=== PATIENT | female | born 1975 | race Caucasian/White ===

== ENCOUNTER → 2018-03-26 14:25 | Outpatient (CLI) | payer OTHER, SELFPAY ==
--- NOTE | 2018-03-26 14:27 | BI_ITS ---
MAMMOGRAPHY - BILATERAL DIAGNOSTIC REASON FOR EXAM: Female, 42 years old. 3 month history of the lateral left breast tenderness. PERTINENT HISTORY: Non-contributory. TECHNIQUE: Digital bilateral breast char (3D mammographic acquisition) in the CC and MLO projections. 2-D mediolateral oblique (MLO) and craniocaudad (CC) views of both breasts were obtained. CAD: Full Field Digital Mammography with Computer Added Detection was performed. COMPARISON: Comparison is made with prior abdomen examination dated October 24, 2016. FINDINGS: Breast Composition: The breasts are extremely dense, which lowers the sensitivity of mammography. There are no dominant masses or suspicious calcifications. No other significant abnormalities are identified. There has been no significant change since the prior study. BI/DIAG MAMM W/CAD, BILAT IMPRESSION: Stable bilateral diagnostic mammogram. With the patient's history of left lateral breast pain, correlation with ultrasound is recommended. ASSESSMENT CATEGORY: BIRADS Category 0: Incomplete. Need additional imaging evaluation. A letter regarding these results will be sent to the patient by the facility within 30 days. Approximately 10% of breast cancers are not detected by mammography. A normal mammogram should not delay biopsy of a clinically suspicious abnormality. Electronically Signed: Jeovany Knox MD at 15:16 EDT Tel [phone], Service support ,
--- NOTE | 2018-03-26 15:10 | US_ITS ---
STUDY: ULTRASOUND BREAST - LEFT REASON FOR EXAM: Female, 42 years old. Pain in the left breast. TECHNIQUE: Axial and longitudinal images of the LEFT breast were performed with a high resolution ultrasound transducer. COMPARISON: Comparison is made with prior mammogram done earlier in the day. FINDINGS: LEFT Breast: There is a 6 mm x 5 mm x 3 mm cyst at the 1:00 position breast at 3 cm from the nipple. Incidental note is made of a 1.1 cm x 1.2 cm x 0.9 cm benign-appearing left axillary lymph node. US/Breast Limited Unilateral IMPRESSION: 6 mm x 5 mm x 3 mm cyst at the 1:00 position in the breast at 3 cm from the nipple. ASSESSMENT CATEGORY: BIRADS Category 2: Benign. A letter regarding these results will be sent to the patient by the facility within 30 days. Electronically Signed: Jeovany Knox MD at 15:51 EDT Tel [phone], Service support ,
== END ==
PROVIDERS: Visit Provider Obstetrics & Gynecology
DX: N64.4 Mastodynia (principal)
CPT/HCPCS: 76642; 77062; 77066; G0279

== ENCOUNTER → 2018-07-13 08:11 | Outpatient (CLI) | payer OTHER, SELFPAY ==
[2018-07-13 10:10] LABS: Cholesterol 155 mg/dL (200); Glucose 83 mg/dL (74-106); High Density Lipoprotein 64 mg/dL; Triglycerides 62 mg/dL; Very Low Density Lipoprotein 12 mg/dL (5-40)
[2018-07-15 09:48] LABS: Vitamin D,25 Hydroxy 42.4 ng/mL (29.95-100.01)
== END ==
PROVIDERS: Visit Provider Obstetrics & Gynecology
DX: Z13.1 Encounter for screening for diabetes mellitus (principal); Z12.31 Encounter for screening mammogram for malignant neoplasm of breast; Z13.21 Encounter for screening for nutritional disorder; Z12.4 Encounter for screening for malignant neoplasm of cervix
CPT/HCPCS: 36415; 80061; 82306; 82947

== ENCOUNTER → 2019-09-29 15:30 | Outpatient (CLI) | payer OTHER, SELFPAY ==
[2019-09-29 15:04] VITALS: BMI 21.7
[2019-10-03 13:35] LABS: HPV APTIMA, High Risk Negative (Negative)
== END ==
PROVIDERS: Referring Provider Obstetrics & Gynecology; Visit Provider Obstetrics & Gynecology
DX: Z12.4 Encounter for screening for malignant neoplasm of cervix (principal)
CPT/HCPCS: 87624; 88175; G0145

== ENCOUNTER → 2019-12-11 15:27 | Outpatient (CLI) | payer OTHER, SELFPAY ==
[2019-09-29 15:04] VITALS: BMI 21.7
--- NOTE | 2019-12-11 15:28 | BI_ITS ---
MAMMOGRAPHY - BILATERAL SCREENING REASON FOR EXAM: Female, 44 years old. Routine annual screening examination. PERTINENT HISTORY: Non-contributory. TECHNIQUE: Digital bilateral breast kristen (3D mammographic acquisition) in the CC and MLO projections. 2-D mediolateral oblique (MLO) and craniocaudad (CC) views of both breasts were obtained. CAD: Full Field Digital Mammography with Computer Added Detection was performed. COMPARISON: Comparison is made with prior study dated March 26, 2018. FINDINGS: Breast Composition: The breasts are extremely dense, which lowers the sensitivity of mammography. There are no dominant masses or suspicious calcifications. No other significant abnormalities are identified. There has been no significant change since the prior study. BI/SCREEN MAMM (CAD) W/KRISTEN BILAT IMPRESSION: Stable bilateral screening mammogram. Yearly follow-up mammogram recommended. (A) ASSESSMENT CATEGORY: BIRADS Category 1: Negative. A letter regarding these results will be sent to the patient by the facility within 30 days. Approximately 10% of breast cancers are not detected by mammography. A normal mammogram should not delay biopsy of a clinically suspicious abnormality. [id number] Electronically Signed: Jeovany Knox, at 16:00 EST , Service support ,
== END ==
PROVIDERS: PCP Family Medicine; Referring Provider Obstetrics & Gynecology; Visit Provider Obstetrics & Gynecology
DX: Z12.31 Encounter for screening mammogram for malignant neoplasm of breast (principal)
CPT/HCPCS: 77063; 77067

== ENCOUNTER → 2020-12-23 12:10 | Outpatient (CLI) | payer OTHER, SELFPAY ==
[2019-09-29 15:04] VITALS: BMI 21.7
--- NOTE | 2020-12-23 12:14 | BI_ITS ---
MAMMOGRAPHY - BILATERAL SCREENING REASON FOR EXAM: Female, 45 years old. Routine annual screening examination. PERTINENT HISTORY: Non-contributory. TECHNIQUE: Digital bilateral breast kristen (3D mammographic acquisition) in the CC and MLO projections. 2-D mediolateral oblique (MLO) and craniocaudad (CC) views of both breasts were obtained. CAD: Full Field Digital Mammography with Computer Added Detection was performed. COMPARISON: Comparison is made with prior study dated 02/09/2020 and 03/26/2018. FINDINGS: Breast Composition: The breasts are extremely dense, which lowers the sensitivity of mammography. There are no dominant masses or suspicious calcifications. No other significant abnormalities are identified. There has been no significant change since the prior study. BI/SCRN MAMM (CAD)W/KRISTEN BILAT IMPRESSION: Stable bilateral screening mammogram. Yearly follow-up mammogram recommended. (A) ASSESSMENT CATEGORY: BIRADS Category 1: Negative. A letter regarding these results will be sent to the patient by the facility within 30 days. Approximately 10% of breast cancers are not detected by mammography. A normal mammogram should not delay biopsy of a clinically suspicious abnormality. [id number] Electronically Signed: Jeovany Knox MD at 13:27 EST , Service support ,
== END ==
PROVIDERS: PCP Family Medicine; Referring Provider Obstetrics & Gynecology; Visit Provider Obstetrics & Gynecology
DX: Z12.31 Encounter for screening mammogram for malignant neoplasm of breast (principal)
CPT/HCPCS: 77063; 77067

== ENCOUNTER 2022-01-19 13:13 | Outpatient (CLI) | payer OTHER, SELFPAY ==
--- NOTE | 2022-01-19 13:15 | BI_ITS ---
MAMMOGRAPHY - BILATERAL SCREENING REASON FOR EXAM: Female, 46 years old. Routine annual screening examination. PERTINENT HISTORY: Non-contributory. TECHNIQUE: Digital bilateral breast kristen (3D mammographic acquisition) in the CC and MLO projections. 2-D mediolateral oblique (MLO) and craniocaudad (CC) views of both breasts were obtained. CAD: Full Field Digital Mammography with Computer Added Detection was performed. COMPARISON: Comparison is made with prior study dated 12/23/2020 and 12/11/2019. FINDINGS: Breast Composition: The breasts are extremely dense, which lowers the sensitivity of mammography. There are no dominant masses or suspicious calcifications. No other significant abnormalities are identified. There has been no significant change since the prior study. BI/SCRN MAMM (CAD)W/KRISTEN BILAT IMPRESSION: Stable bilateral screening mammogram. Yearly follow-up mammogram recommended. (A) ASSESSMENT CATEGORY: BIRADS Category 1: Negative. A letter regarding these results will be sent to the patient by the facility within 30 days. Approximately 10% of breast cancers are not detected by mammography. A normal mammogram should not delay biopsy of a clinically suspicious abnormality. [id number] Electronically Signed: Jeovany Knox MD at 14:23 EDT ,
== END 2022-01-19 23:59 | disposition home or self-care (01) ==
LOC: OPBI 13:13
PROVIDERS: PCP Family Medicine; Visit Provider Obstetrics & Gynecology
DX: Z12.31 Encounter for screening mammogram for malignant neoplasm of breast (principal)
CPT/HCPCS: 77063; 77067

== ENCOUNTER 2022-01-27 08:16 | Outpatient (CLI) | payer OTHER, SELFPAY ==
[2022-01-27 09:59] LABS: Vitamin D,25 Hydroxy 38.8 ng/mL
[2022-01-27 10:04] LABS: Cholesterol 176 mg/dL (200); Glucose 84 mg/dL (74-106); High Density Lipoprotein 84 mg/dL; Thyroid Stim Hormone (TSH) 2.84 uIU/mL (0.358-3.74); Triglycerides 54 mg/dL; Very Low Density Lipoprotein 11 mg/dL (5-40)
== END 2022-01-27 23:59 | disposition home or self-care (01) ==
PROVIDERS: PCP Family Medicine; Referring Provider Obstetrics & Gynecology; Visit Provider Obstetrics & Gynecology
DX: Z01.419 Encounter for gynecological examination (general) (routine) without abnormal findings (principal)
CPT/HCPCS: 36415; 80061; 82306; 82947; 84443

== ENCOUNTER → 2023-02-05 | Outpatient (CLI) | payer OTHER, SELFPAY ==
--- NOTE | 2023-02-05 12:58 | BI_ITS ---
MAMMOGRAPHY - BILATERAL SCREENING 3-D TOMOSYNTHESIS REASON FOR EXAM: Female, 47 years old. Routine screening PERTINENT HISTORY: No significant family history. TECHNIQUE: 2-D mammograms and 3-D Tomosynthesis of the breast (s) were performed. CAD was performed. COMPARISON: 12/23/2020 FINDINGS: The breast composition is heterogeneously dense that can obscure small breast masses. Scattered benign calcifications are seen. No dense spiculated masses or suspicious microcalcifications are identified. No architectural distortion is identified. There is no skin thickening or retraction. There has been no significant change since the prior study. BI/SCRN MAMM (CAD)W/KRISTEN BILAT IMPRESSION: No mammographic signs of malignancy. Routine yearly mammograms recommended. ASSESSMENT CATEGORY: BIRADS Category 2: Benign. A letter regarding these results will be sent to the patient by the facility within 30 days. FOLLOW UP RECOMMENDATION: Yearly follow up mammogram recommended. (A) Approximately 10% of breast cancers are not detected by mammography. A normal mammogram should not delay biopsy of a clinically suspicious abnormality. Electronically Signed: Virgilio Valero MD at 14:35 EDT ,
== END | disposition home or self-care (01) ==
LOC: OPBI 12:57
PROVIDERS: PCP Family Medicine; Referring Provider Advanced Practice Midwife; Visit Provider Advanced Practice Midwife
DX: Z12.31 Encounter for screening mammogram for malignant neoplasm of breast (principal)
CPT/HCPCS: 77063; 77067

== ENCOUNTER → 2024-02-07 | Outpatient (CLI) | payer OTHER, SELFPAY ==
--- NOTE | 2024-02-07 12:19 | BI_ITS ---
MAMMOGRAPHY - BILATERAL SCREENING REASON FOR EXAM: Female, 48 years old. Routine annual screening examination. PERTINENT HISTORY: Non-contributory. TECHNIQUE: Digital bilateral breast kristen (3D mammographic acquisition) in the CC and MLO projections. 2-D mediolateral oblique (MLO) and craniocaudad (CC) views of both breasts were obtained. CAD: Full Field Digital Mammography with Computer Added Detection was performed. COMPARISON: Comparison is made with prior study dated February 05, 2023 and January 19, 2022. FINDINGS: Breast Composition: The breasts are extremely dense, which lowers the sensitivity of mammography. There is a 1.7 cm x 1.6 cm well-defined nodule in the axillary region of the left breast. Correlation with ultrasound is recommended. No other significant abnormalities are identified. BI/SCRN MAMM (CAD)W/KRISTEN BILAT IMPRESSION: 1.7 cm x 1.6 cm well-defined nodule in the axillary region of the left breast. Correlation with ultrasound is recommended. ASSESSMENT CATEGORY: BIRADS Category 0: Incomplete. Need additional imaging evaluation. A letter regarding these results will be sent to the patient by the facility within 30 days. Approximately 10% of breast cancers are not detected by mammography. A normal mammogram should not delay biopsy of a clinically suspicious abnormality. [id number] Electronically Signed: Jeovany Knox MD at 14:01 EDT ,
[2024-02-14 10:09] LABS: HPV APTIMA, High Risk Negative (Negative)
== END | disposition home or self-care (01) ==
LOC: OPBI 12:19
PROVIDERS: PCP Family Medicine; Referring Provider Nurse Practitioner Women's Health; Visit Provider Nurse Practitioner Women's Health
DX: Z12.31 Encounter for screening mammogram for malignant neoplasm of breast (principal)
CPT/HCPCS: 77063; 77067; 87624; 88175; G0145

== ENCOUNTER → 2024-02-14 | Outpatient (CLI) | payer OTHER, SELFPAY ==
--- NOTE | 2024-02-14 12:58 | US_ITS ---
STUDY: ULTRASOUND BREAST - LEFT REASON FOR EXAM: Female, 48 years old. Abnormal screening mammogram. TECHNIQUE: Axial and longitudinal images of the LEFT breast were performed with a high resolution ultrasound transducer. # OF IMAGES: 27 COMPARISON: Comparison is made with prior study dated February 07, 2024. FINDINGS: LEFT Breast: The mammographic abnormality corresponds to a 1.8 cm x 1.6 cm x 0.8 cm cyst at the 2:00 position of the breast at 5 cm from the nipple. US/Breast Limited Unilateral IMPRESSION: The mammographic abnormality corresponds to a 1.8 cm x 1.6 cm x 0.8 cm cyst at the 2:00 position of the breast is 5 cm from the nipple. ASSESSMENT CATEGORY: BIRADS Category 2: Benign. A letter regarding these results will be sent to the patient by the facility within 30 days. Electronically Signed: Jeovany Knox MD at 14:40 EDT ,
== END | disposition home or self-care (01) ==
LOC: OPUS 12:53
PROVIDERS: PCP Family Medicine; Referring Provider Nurse Practitioner Women's Health; Visit Provider Nurse Practitioner Women's Health
DX: N60.02 Solitary cyst of left breast (principal)
CPT/HCPCS: 76642

== ENCOUNTER → 2024-09-16 | Outpatient (CLI) | payer OTHER, SELFPAY ==
[2024-09-16 11:08] LABS: Absolute Lymphocyte Count 2.09 X10^3/uL (0.83-4.51); Absolute Neutrophil Count 5.1 X10^3/uL (2.0-7.7); Basophil# 0.09 X10^3/uL; Basophil% 1.1 % (0-1); Eosinophil# 0.11 X10^3/uL; Eosinophils% 1.4 % (0-5); Hemoglobin 15.1 g/dL (12.0-15.0); Lymphocyte # 2.09 X10^3/ul (0.83-4.51); Lymphocyte % 25.9 % (19-41); Mean Corp Hgb Conc 32.8 g/dL (32-36); Mean Corpuscular Hgb 27.6 pg (27.0-32.0); Mean Corpuscular Volume 84.1 fL (81-99); Mean Platelet Vol. 8.5 fl (6.2-12.0); Monocyte# 0.65 X10^3/uL; Monocyte% 8.1 % (0-10); NRBC Flagged by Analyzer 0 % (0-5); Neutrophil # 5.09 X10^3/uL (2.7-7.7); Platelet Count 356 K/mm3 (150-450); RBC Distribution Width CV 13.2 % (11.6-14.6); RBC Distribution Width SD 40.5 fl (35.1-43.9); Red Blood Count 5.47 M/mm3 (4.2-5.4); White Blood Count 8.1 K/mm3 (4.4-11.0)
[2024-09-16 11:38] LABS: Vitamin D,25 Hydroxy 33.2 ng/mL
[2024-09-16 11:56] LABS: ALB/GLOB Ratio 1.1 RATIO (0.9-2.4); AST(SGOT) 18 U/L (15-37); Alanine Aminotransfer ALT/SGPT 18 U/L (13-56); Albumin, Serum 4.2 g/dL (3.2-5.0); Alkaline Phosphatase 56 U/L (45-117); Anion Gap 4 (5-15); BUN 19 mg/dL (7-18); BUN/Creat Ratio 22.2 RATIO (10-20); Calcium,Total 9.5 mg/dL (8.5-10.1); Chloride 105 mmol/L (98-107); Cholesterol 174 mg/dL (200); Creatinine, Serum 0.85 mg/dL (0.55-1.02); EST Glomerular Filtration Rate 75 mL/min (>60); Est Glom Filt Rate - Afr Amer 90 mL/min (>60); Globulin 3.9 g/dL (2.2-4.2); Glucose 92 mg/dL (74-106); High Density Lipoprotein 90 mg/dL; Protein, Total 8.1 g/dL (6.4-8.2); Sodium Level 135 mmol/L (136-145); Triglycerides 76 mg/dL; Very Low Density Lipoprotein 15 mg/dL (5-40)
== END | disposition home or self-care (01) ==
LOC: LAB 10:27
PROVIDERS: PCP Family Medicine; Referring Provider Family Medicine; Visit Provider Family Medicine
DX: Z00.00 Encounter for general adult medical examination without abnormal findings (principal); Z82.49 Family history of ischemic heart disease and other diseases of the circulatory system; E78.5 Hyperlipidemia, unspecified; E55.9 Vitamin D deficiency, unspecified
CPT/HCPCS: 36415; 80053; 80061; 82306; 84443; 85025

== ENCOUNTER → 2025-01-29 | Outpatient (CLI) | payer OTHER, SELFPAY ==
--- NOTE | 2025-01-29 13:15 | BI_ITS ---
EXAM: SCRN MAMM (CAD)W/KRISTEN BILAT DATE: 01/29/2025 CLINICAL HISTORY: F, Age 49 y/o , SCREEN FOR BREAST CANCER No family history. Prior left cyst drainage. BREAST CANCER RISK ASSESSMENT: Not assessed. TECHNIQUE: Bilateral screening digital breast tomosynthesis with 2D and 3D images. Computer aided detection. COMPARISON: Prior exam(s) dated February 07, 2024.. FINDINGS: TISSUE DENSITY: The breast tissue is extremely dense which lowers the sensitivity of mammography. Bilateral Breast Mammographic Findings: No significant masses, calcifications or other abnormalities are identified. The previously seen nodular density in the left axillary region is smaller in size. It presently measures 8.3 mm. BI/SCRN MAMM (CAD)W/KRISTEN BILAT IMPRESSION: Right Breast: BIRADS 2 BENIGN FINDING. Left Breast: BIRADS 2 BENIGN FINDING. OVERALL FINAL ASSESSMENT: BIRADS 2 BENIGN FINDING RECOMMENDATION: Routine annual follow-up in 1 Year A letter with findings and recommendations will be mailed to the patient. Reading Location: [place] [id number]
== END | disposition home or self-care (01) ==
LOC: OPBI 13:03
PROVIDERS: PCP Family Medicine; Referring Provider Nurse Practitioner Women's Health; Visit Provider Nurse Practitioner Women's Health
DX: Z12.31 Encounter for screening mammogram for malignant neoplasm of breast (principal)
CPT/HCPCS: 77063; 77067

== ENCOUNTER → 2025-09-16 | Outpatient (CLI) | payer OTHER, SELFPAY ==
[2025-09-16 13:16] LABS: Hematocrit 45.6 % (37-47); Hemoglobin 14.7 g/dL (12.0-15.0); Immature Granulocytes Count 0.010 X10^3/uL (0.0-0.0); Mean Corp Hgb Conc 32.2 g/dL (32-36); Mean Corpuscular Volume 86.5 fL (81-99); Mean Platelet Vol. 8.7 fl (6.2-12.0); NRBC Flagged by Analyzer 0 % (0-5); Platelet Count 398 K/mm3 (150-450); RBC Distribution Width CV 13.1 % (11.6-14.6); RBC Distribution Width SD 41.1 fl (35.1-43.9); Red Blood Count 5.27 M/mm3 (4.2-5.4); White Blood Count 5.9 K/mm3 (4.4-11.0)
[2025-09-16 13:49] LABS: AST(SGOT) 26 U/L (<=31); Alanine Aminotransfer ALT/SGPT 17 U/L (<=34); Albumin, Serum 4.7 g/dL (3.5-5.0); Alkaline Phosphatase 57 U/L (35-104); Anion Gap 10 (5-15); BUN 18 mg/dL (4-19); BUN/Creat Ratio 25.6 RATIO (10-20); Calcium,Total 9.5 mg/dL (7.6-11.0); Carbon Dioxide 26.2 mmol/L (21.0-32.0); Chloride 104 mmol/L (98-108); Globulin 3.0 g/dL (2.2-4.2); Glucose 85 mg/dL (70-99); Lipase 29 U/L (13-75); Potassium 4.1 mmol/L (3.3-5.1)
--- OUTSIDE RECORDS SUMMARY | 2025-09-16 14:04 | XMS RPT_ITS | CCD ---
Author Organization [facility] Care Team Providers Care Solutions Manager Name Role Phone Dr. Reina Dillon Primary Care Provider Dr. Reina Dillon Referring Provider Dr. Shanelle Tapia Attending Provider Dr. Reina Dillon Primary Care Provider Dr. Reina Dillon Referring Provider Damien GUERRA, MARI-C Kari Attending Provider Dr. Reina Dillon MD Primary Care Provider Damien FISCAL ANALYST-CKari Attending Provider Damien GUERRA-Kari [place] Referring Provider Reina Dillon Primary Care Unavailable Reina Dillon Attending Unavailable Reina Dillon Referring Unavailable Reina Dillon Primary Care Unavailable Damien FISCAL ANALYSTKari Attending Unavailable Kari Quezada NP Referring Unavailable Reina Dillon Referring Unavailable Kari Quezada NP Attending Unavailable Reina Dillon Primary Care Unavailable Medications Current Medications Medication Drug Class(es) Dates Sig (Normalized) Sig (Original) cholecalciferol 0.05 mg oral capsule (5 sources) Vitamin D Start: 02-15-2018 take 1 capsule by mouth once daily Cholecalciferol (Vitamin D3) 2,000 unit capsule Active 2000 U PO daily February 15, 2018 12:00am vitamin e 90 mg oral capsule (5 sources) Start: 02-15-2018 take 1 capsule by mouth once daily Vitamin E 200 unit capsule Active 200 U PO daily February 15, 2018 12:00am Problems Problem Classification Problem Date Documented Da te Episodic/Chronic Menstrual disorders (3 sources) Polymenorrhea; Translations: [Excessive and frequent menstruation with regular cycle] 02-07-2024 Chronic Comment on above: last 2 months. very light cycles. Other screening for suspected conditions (not mental disorders or infectious disease) (1 source) Encounter for screening mammogram for malignant neoplasm of breast; Translations: [Encounter for screening mammogram for malignant neoplasm of breast] Onset: 02-03-2025 Episodic Results Test Name Value Interpretation Reference Range Facility [facility] Visit Reporton 02-24-2025 [facility] Visit Report [facility] [address], [address] [place] [address] OFFICE VISIT Date of Service: 02/24/25 MR#: [id number] Acct: [id number] Name: ELSA AECVES Rep #: [id number] : 1975 Provider: LEONARDA dave Age/Sex: 49/F Location: [facility] Status: Signed Intake Vital Signs 02/07/24 13:09 02/24/25 13:11 Height 5 ft 5 in 5 ft 5 in Weight: 129 lb BMI 21.4 BP 114/74 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 Is patient in pain?: No Allergies No Known Allergies Allergy (Verified 02/24/25 13:22) Medications ???Medication ???Instructions ???Recorded ???Confirmed ???Type cholecalciferol (vitamin D3) 50 2,000 unit PO QDAY 02/15/18 History mcg (2,000 unit) capsule vitamin E 200 unit capsule 200 unit PO QDAY 02/15/18 02/24/25 History Is last menstrual period known: Yes Last Menstrual Period: 02/17/25 Post menopausal: No Patient : No : No PFSH Family History Father Heart disease Social History Smoking Status: Never smoker alcohol intake: current details: occasionally substance use type: does not use caffeine: Yes what type of physical activity do you participate in: running and weight training frequency: 3-4 times per week seatbelt use: always do you feel safe at home: Yes additional social history: - Shlomo- Telephone Claims Representative [facility] is -[facility] History 0 Elective abortions Hx Para Spontaneous abortions Hx # Term Pregnancies Ectopic pregnancies Hx # Pregnancies Multiple births # of living children HPI Encounter for routine gynecological examination Details: ELSA ACEVES is a 49 year old who presents for annual exam. Denies concerns. Menses still regular each month but light Last PAP: 2023 History of abnormal PAP: no Last mammogram: 01/2025 History of abnormal mammogram: no Colon cancer screening: cologuamakenzie 2022 Other preventative health care screenings: Masood Female Reproductive History Last Menstrual Period: 02/17/25 Cycle Length: 21-35 Questions: metorrhagia: No, sexually active: Yes, dyspareunia: No and PCB: No ROS Const Constitutional: Denies fatigue, weight gain or weight loss Cardio Card: Denies chest pain Resp Resp: Denies cough or dyspnea on exertion GI GI: Denies abdominal pain, bloating, change in stool character, constipation or vomiting : Reports as per HPI; Denies difficulty voiding, pelvic pain, urinary frequency, urinary incontinence, urinary urgency, vaginal discharge or vaginal pruritus Exam Const General: cooperative, healthy appearing, no acute distress and well developed Orientation: alert, oriented to person and oriented to place HENNJ Head: normal to inspection Neck Neck: normal visual inspection Thyroid: thyroid normal Lymphatic: no lymphadenopathy noted Chest Breast inspection: normal inspection of the breasts and normal inspection of the axillae Breast palpation: normal palpation of the breasts, normal palpation of the axillae and no axillary lymphadenopathy Resp Effort Inspection: normal respiratory effort GI Palpation: soft, no masses and nontender Rectal Exam: deferred External Female Exam: normal external appearance and normal appearance of the urethra Urethra: normal appearance of the urethra and normal palpation Speculum Exam - Vagina: normal appearance of the vagina and normal vaginal discharge Speculum Exam - Cervix: normal appearance of the cervix Bimanual Exam- Vagina Uterus: normal bimanual exam, uterine size normal, uterine shape normal and non-tender Bimanual Exam- Adnexa, other: normal adnexae, no masses, normal and non-tender Pelvic Support: normal Neuro General: patient alert and patient oriented x3 Psych Affect: normal affect Coding Level of Care Code Off vis,est,prev 40-64yrs Diagnoses Encounter for gynecological examination without abnormal finding Z01.419 Gynecological examination findings: abnormal findings ABSENT Assessment and Plan Assessment and Plan (1) Encounter for routine gynecological examination: Qualifiers: Gynecological examination findings: abnormal findings ABSENT Qualified Code(s): Z01.419 - Encounter for gynecological examination (general) (routine) without abnormal findings Plan Completed breast and pelvic exam Reviewed diet and exercise Pap 2023 Mammogram recent breast self exam encouraged monthly Contraception infertility Colonoscopy cologuard 2022 Bone density age 63 RTO 1 year, prn with problems Kari Quezada SHIP LINER 02/24/25 1339 Date Kari Has (more content not included)... Normal [facility] Breast imaging reportOrdered By: Jeovany Knox on 01-29-2025 Study report [facility] Imaging Services [address] [place] [address] SCRN MAMM (CAD)W/KRISTEN BILAT MR#: [id number] Acct: [id number] Name: ELSA ACEVES Rep #: [id number] : 1975 F 49 From: Roger Knox MD PCP: Dr. Reina Dillon MD Status: [facility] Study:SCRN MAMM (CAD)W/KRISTEN BILAT Date of Exa m: 01/29/25 Exam# [id number] Ordering Dr: Kari Quezada FISCAL ANALYST FISCAL ANALYST-C EXAM: SCRN MAMM (CAD)W/KRISTEN BILAT DATE: 01/29/2025 CLINICAL HISTORY: F, Age 49 y/o , SCREEN FOR BREAST CANCER No family history. Prior left cyst drainage. BREAST CANCER RISK ASSESSMENT: Not assessed. TECHNIQUE: Bilateral screening digital breast tomosynthesis with 2D and 3D images. Computeraided detection. COMPARISON: Prior exam(s) dated February 07, 2024.. FINDINGS: TISSUE DENSITY: The breast tissue is extremely dense which lowers the sensitivity of mammography. Bilateral Breast Mammographic Findings: No significant masses, calcifications or other abnormalities are identified. The previously seen nodular density in the left axillary region is smaller in size. It presently measures 8.3 mm. BI/SCRN MAMM (CAD)W/KRISTEN BILAT IMPRESSION: Right Breast: BIRADS 2 BENIGN FINDING. Left Breast: BIRADS 2 BENIGN FINDING. OVERALL FINAL ASSESSMENT: BIRADS 2 BENIGN FINDING RECOMMENDATION: Routine annual follow-up in 1 Year A letter with findings and recommendations will be mailed to the patient. Reading Location: [place] [address] CC: FISCAL ANALYST-Mercy Quezada; Dr. Reina Dillon MD ~ Meter/Relay Craftsman: Signed [facility] SCRN MAMM (CAD)W/KRISTEN BILATo n 01-29-2025 SCRN MAMM (CAD)W/KRISTEN BILAT [facility] Imaging Services [address] [place] [id number] SCRN MAMM (CAD)W/KRISTEN BILAT MR#: [id number] Acct: [id number] Name: ELSA ACEVES Rep #: [id number] : 1975 F 49 From: Jeovany cali MD PCP: Dr. Reina Dillon MD Status: [facility] Study: SCRN MAMM (CAD)W/KRISTEN BILAT Date of Exam: 01/20 Exam# [id number] Ordering Dr: Kari Quezada NP FISCAL ANALYST -C EXAM: SCRN MAMM (CAD)W/KRISTEN BILAT DATE: 01/29/2025 CLINICAL HISTORY: F, Age 49 y/o , SCREEN FOR BREAST CANCER No family history. Prior left cyst drainage. BREAST CANCER RISK ASSESSMENT: Not assessed. TECHNIQUE: Bilateral screening digital breast tomosynthesis with 2D and 3D images. Computer aided detection. COMPARISON: Prior exam(s) dated February 07, 2024.. FINDINGS: TISSUE DENSITY: The breast tissue is extremely dense which lowers the sensitivity of mammography. Bilateral Breast Mammographic Findings: No significant masses, calcifications or other abnormalities are identified. The previously seen nodular density in the left axillary region is smaller in size. It presently measures 8.3 mm. BI/SCRN MAMM (CAD)W/KRISTEN BILAT IMPRESSION: Right Breast: BIRADS 2 BENIGN FINDING. Left Breast: BIRADS 2 BENIGN FINDING. OVERALL FINAL ASSESSMENT: BIRADS 2 BENIGN FINDING RECOMMENDATION: Routine annual follow-up in 1 Year A letter with findings and recommendations will be mailed to the patient. Reading Location: [place] [address] CC: LEONARDA Quezada; Dr. Reina Dillon MD Meter/Relay Craftsman: Signed Normal [facility] CBC W/Diff, Automatedon 11- Absolute Lymph 2.09 X10 3/uL Normal 0.83-4.51 [facility] Comment on above: Performed By: #### L 500.4100, L100.0100, L501.9520, L506.1000, L500.4050 #### [facility] [address] [place], [address] Absolute Neut 5.1 X10 3/uL Normal 2.0-7.7 [facility] Comment on above: Performed By: #### L 500.4100, L100.0100, L501.9520, L506.1000, L500.4050 #### [facility] [address] [place], [address] Basophils/100 WBC (Bld) 1.1 % High 0-1 [facility] Comment on above: Performed By: #### L 500.4100, L100.0100, L501.9520, L506.1000, L500.4050 #### [facility] [address] [place], [address] Eosinophils/100 WBC (Bld) 1.4 % Normal 0-5 [facility] Comment on above: Performed By: #### L 500.4100, L100.0100, L501.9520, L506.1000, L500.4050 #### [facility] [address] [place], [address] Erythrocyte distribution width (RBC) [Ratio] 13.2 % Normal 11.6-14.6 [facility] Comment on above: Performed By: #### L 500.4100, L100.0100, L501.9520, L506.1000, L500.4050 #### [facility] [address] [place], [address] Hematocrit (Bld) [Volume fraction] 46.0 % Normal 37-47 [facility] Comment on above: Performed By: #### L 500.4100, L100.0100, L501.9520, L506.1000, L500.4050 #### [facility] [address] [place], [address] Hemoglobin (Bld) [Mass/Vol] 15.1 g/dL High 12.0-15.0 [facility] Comment on above: Performed By: #### L 500.4100, L100.0100, L501.9520, L506.1000, L500.4050 #### [facility] [address] [place], [address] IG% 0.500 Normal 0.0-0.9 [facility] Comment on above: Result Comment: IG% - Immature Granulocytes (promyelocytes, myelocytes and metamyelocytes) > 1% indicates that a LEFT SHIFT is Present. Performed By: #### L 500.4100, L100.0100, L501.9520, L506.1000, L500.4050 #### [facility] [address] [place], [address] Lymphocytes/100 WBC (Bld) 25.9 % Normal 19-41 [facility] Comment on above: Performed By: #### L 500.4100, L100.0100, L501.9520, L506.1000, L500.4050 #### [facility] [address] [place], [address] MCH (RBC) [Entitic mass] 27.6 pg Normal 27.0-32.0 [facility] Comment on above: Performed By: #### L 500.4100, L100.0100, L501.9520, L506.1000, L500.4050 #### [facility] [address] [place], [address] MCHC (RBC) [Mass/Vol] 32.8 g/dL Normal 32-36 [facility] Comment on above: Performed By: #### L 500.4100, L100.0100, L501.9520, L506.1000, L500.4050 #### [facility] [address] [place], [address] MCV (RBC) [Entitic vol] 84.1 fL Normal 81-[address] [facility] Comment on above: Performed By: #### L 500.4100, L100.0100, L501.9520, L506.1000, L500.4050 #### [facility] [address] [place], [address] Monocytes/100 WBC (Bld) 8.1 % Normal 0-[address] [facility] Comment on above: Performed By: #### L 500.4100, L100.0100, L501.9520, L506.1000, L500.4050 #### [facility] [address] [place], [address] Neutrophils/100 WBC (Bld) 63.0 % Normal 47-70 [facility] Comment on above: Performed By: #### L 500.4100, L100.0100, L501.9520, L506.1000, L500.4050 #### [facility] [address] [place], [address] Nucleated RBC (Bld) [#/Vol] 0 10*3/uL Normal 0-5 [facility] Comment on above: Performed By: #### L 500.4100, L100.0100, L501.9520, L506.1000, L500.4050 #### [facility] [address] [place], [address] Platelet mean volume (Bld) [Entitic vol] 8.5 fL Normal 6.2-12.0 [facility] Comment on above: Performed By: #### L 500.4100, L100.0100, L501.9520, L506.1000, L500.4050 #### [facility] [address] [place], [address] Platelets (Bld) [#/Vol] 356 10*3/uL Normal 150-450 [facility] Comment on above: Performed By: #### L 500.4100, L100.0100, L501.9520, L506.1000, L500.4050 #### [facility] [address] [place], [address] RBC (Bld) [#/Vol] 5.47 10*6/uL High 4.2-5.4 [facility] Comment on above: Performed By: #### L 500.4100, L100.0100, L501.9520, L506.1000, L500.4050 #### [facility] [address] [place], [address] RDW SD 40.5 fl Normal 35.1-43.9 [facility] Comment on above: Performed By: #### L 500.4100, L100.0100, L501.9520, L506.1000, L500.4050 #### [facility] [address] [place], [address] WBC (Bld) [#/Vol] 8.1 10*3/uL Normal 4.4-11.0 [facility] Comment on above: Performed By: #### L 500.4100, L100.0100, L501.9520, L506.1000, L500.4050 #### [facility] [address] [place], [address] Comprehensive Metabolic Prof ilon 09-16-2024 Albumin [Mass/Vol] 4.2 g/dL Normal 3.2-5.0 [facility] Comment on above: Performed By: #### L 500.4100, L100.0100, L501.9520, L506.1000, L500.4050 #### [facility] [address] [place], [address] Albumin/Globulin [Mass ratio] 1.1 {ratio} Normal 0.9-2.4 [facility] Comment on above: Performed By: #### L 500.4100, L100.0100, L501.9520, L506.1000, L500.4050 #### [facility] [address] [place], [address] ALK P 56 U/L Normal 45-117 [facility] Comment on above: Performed By: #### L 500.4100, L100.0100, L501.9520, L506.1000, L500.4050 #### [facility] [address] [place], [address] ALT [Catalytic activity/Vol] 18 U/L Normal 13-56 [facility] Comment on above: Performed By: #### L 500.4100, L100.0100, L501.9520, L506.1000, L500.4050 #### [facility] [address] [place], [address] AST [Catalytic activity/Vol] 18 U/L Normal 15-37 [facility] Comment on above: Performed By: #### L 500.4100, L100.0100, L501.9520, L506.1000, L500.4050 #### [facility] [address] [place], [address] Bilirubin [Mass/Vol] 0.80 mg/dL Normal 0.20-1.00 [facility] Comment on above: Result Comment: For patients on eltrombopag therapy, use of Dimension [place] TBIL is not recommended. Performed By: #### L 500.4100, L100.0100, L501.9520, L506.1000, L500.4050 #### [facility] [address] [place], [address] BUN/CRE 22.2 RATIO High 10-20 [facility] Comment on above: Performed By: #### L 500.4100, L100.0100, L501.9520, L506.1000, L500.4050 #### [facility] [address] [place], [address] CA,Total 9.5 mg/dL Normal 8.5-10.1 [facility] Comment on above: Performed By: #### L 500.4100, L100.0100, L501.9520, L506.1000, L500.4050 #### [facility] [address] [place], [address] Chloride [Moles/Vol] 105 mmol/L Normal 98-107 [facility] Comment on above: Performed By: #### L 500.4100, L100.0100, L501.9520, L506.1000, L500.4050 #### [facility] [address] [place], [address] CO2 [Moles/Vol] 26.0 mmol/L Normal 21.0-32.0 [facility] Comment on above: Performed By: #### L 500.4100, L100.0100, L501.9520, L506.1000, L500.4050 #### [facility] [address] [place], [address] Creatinine [Mass/Vol] 0.85 mg/dL Normal 0.55-1.02 [facility] Comment on above: Result Comment: The validity of the calculated GFR GFRAA in patients over 70 years has not been determined. Clinical correlation is essential. Performed By: #### L 500.4100, L100.0100, L501.9520, L506.1000, L500.4050 #### [facility] [address] [place], [address] EST GFR - AA 90 mL/min Normal >60 [facility] Comment on above: Result Comment: Afri can Mexican GFR Calc Performed By: #### L 500.4100, L100.0100, L501.9520, L506.1000, L500.4050 #### [facility] [address] [place], [address] GAP 4 Low 5-15 [facility] Comment on above: Performed By: #### L 500.4100, L100.0100, L501.9520, L506.1000, L500.4050 #### [facility] [address] [place], [address] GFR/1.73 sq M.predicted among non-blacks MDRD (S/P/Bld) [Vol rate/Area] 75 mL/min/{1.73_m2} Normal >60 [facility] Comment on above: Result Comment: Non- GFR Calc Performed By: #### L 500.4100, L100.0100, L501.9520, L506.1000, L500.4050 #### [facility] [address] [place], [address] Globulin (S) [Mass/Vol] 3.9 g/dL Normal 2.2-4.[address] [facility] Comment on above: Performed By: #### L 500.4100, L100.0100, L501.9520, L506.1000, L500.4050 #### [facility] [address] [place], [address] Glucose [Mass/Vol] 92 mg/dL Normal 74-106 [facility] Comment on above: Performed By: #### L 500.4100, L100.0100, L501.9520, L506.1000, L500.4050 #### [facility] [address] [place], [address] Potassium [Moles/Vol] 4.0 mmol/L Normal 3.5-5.1 [facility] Comment on above: Performed By: #### L 500.4100, L100.0100, L501.9520, L506.1000, L500.4050 #### [facility] [address] [place], [address] Sodium [Moles/Vol] 135 mmol/L Low 136-145 [facility] Comment on above: Performed By: #### L 500.4100, L100.0100, L501.9520, L506.1000, L500.4050 #### [facility] [address] [place], [address] T PROT 8.1 g/dL Normal 6.4-8.2 [facility] Comment on above: Performed By: #### L 500.4100, L100.0100, L501.9520, L506.1000, L500.4050 #### [facility] [address] [place], [address] Urea nitrogen [Mass/Vol] 19 mg/dL High 7-18 [facility] Comment on above: Performed By: #### L 500.4100, L100.0100, L501.9520, L506.1000, L500.4050 #### [facility] [address] [place], [address] Lipid Profileon 09-16-2024 Cholesterol [Mass/Vol] 174 mg/dL Normal 200 [facility] Comment on above: Result Comment: <200 mg/dL Desirable 200-240 mg/dL Borderline >240 mg/dL High Risk Performed By: #### L 500.4100, L100.0100, L501.9520, L506.1000, L500.4050 #### [facility] [address] [place], [address] Cholesterol in HDL [Mass/Vol] 90 mg/dL Normal [facility] Comment on above: Result Comment: The drugs N-Acetylcysteine and Metamizole may falsely depress this assay. Reference Range HDL <40 mg/dL Low HDL Cholesterol HDL >or= 60 mg/dL High HDL Cholesterol Performed By: #### L 500.4100, L100.0100, L501.9520, L506.1000, L500.4050 #### [facility] [address] [place], [address] Cholesterol in LDL [Mass/Vol] 69 mg/dL Normal 0-130 [facility] Comment on above: Performed By: #### L 500.4100, L100.0100, L501.9520, L506.1000, L500.4050 #### [facility] [address] [place], [address] Cholesterol in VLDL [Mass/Vol] 15 mg/dL Normal 5-40 [facility] Comment on above: Performed By: #### L 500.4100, L100.0100, L501.9520, L506.1000, L500.4050 #### [facility] [address] [place], [address] Triglyceride [Mass/Vol] 76 mg/dL Normal [facility] Comment on above: Result Comment: The drugs N-Acetylcysteine and Metamizole may falsely depress this assay. Serum Triglycerides Reference Interval Normal <150 mg/dL Borderline high 150 - 199 mg/dL High 200 - 499 mg/dL Very High > or = 500 mg/dL Performed By: #### L 500.4100, L100.0100, L501.9520, L506.1000, L500.4050 #### [facility] [address] [place], [address] Thyroid Stim Hormone (TSH)on 09-16-2024 TSH 3.270 uIU/mL Normal 0.358-3.740 [facility] Comment on above: Performed By: #### L 500.4100, L100.0100, L501.9520, L506.1000, L500.4050 #### [facility] [address] [place], [address] Vitamin D,25 Hydroxyon 09-16 Vitamin D 25-OH 33.2 ng/mL Normal [facility] Comment on above: Result Comment: Marry min D 25(OH) Status Range Deficiency <20 ng/mL (50nmol/L) Insufficiency 20 - 30 ng/mL (50 - 75 nmol/L) Sufficiency 30 - 100 ng/mL (75 - 250 nmol/L) Toxicity >100 ng/mL (>250 nmol/L) Performed By: #### L 500.4100, L100.0100, L501.9520, L506.1000, L500.4050 #### [facility] [address] [place], [address] Cervical or vaginal specimen microscopic examination by liquid based cytology (reportOrdered By: Kari Quezada on 02-07-2024 Cytology report Cyto stain.thin prep Doc (Cvx/Vag) Comment . [facility] Comment on above: Criteria not met, HP V Genotype not performed.Performed at: - [address] [id number] Director: Tanna Alicia MD, Phone: [phone] at: = - [facility] [id number] Director: Tanna Alicia MD, Phone: [phone] Cervical or vagninal specime n microscopic examination by cytology stain (reported asOrdered By: Kari Quezada on 02-07-2024 Cytology report Cyto stain Doc (Cvx/Vag) Comment . [facility] [facility] Comment on above: The Pap smear is a s creening test designed to aid in thedetection of premalignant and malignant conditions of theuterine cervix. It is not a diagnostic procedure andshould not be used as the sole means of detecting cervicalcancer. Both false-positive and false-negative reports dooccur. Detection in cervical specim en of any of human papilloma virus (HPV) 16, 18, 31, 33,Ordered By: Kari Quezada on 02-07-2024 HPV 16+18+31+33+35+39+45+51 +52+56+58+59+66+68 DNA Probe+sig amp Ql (Cvx) Negative Negative [facility] Comment on above: This nucleic acid am plification test detects fourteen high-risk HPV types (16,18,31,33,35,39,45,51,52,56,58,59,66,68)without differentiation. Laboratory - CytologyOrdered By: Kari Quezada on 02-07-2024 Occupational Health And Safety Officer Cyto stain Nom (Cvx/Vag) [ID] Comment . [facility] Comment on above: Marisa mott, Dress Cutter (ASCP) Laboratory - Miscellaneous t estsOrdered By: Kari Quezada on 02-07-2024 Service comment (Unsp spec) [Interp] . . [facility] No Panel InformationOrdered By: Kari Quezada on 02-07-2024 Pap Smear QC Review Comment . [facility] Comment on above: Katelyn Johnson, Cytot echnologist (ASCP) Thin prep Papanicolaou smear with manual screeningOrdered By: Kari Quezada on 02-07-2024 Thin prep Papanicolaou smear with manual screening Comment . [facility] Comment on above: NEGATIVE FOR INTRAEP ITHELIAL LESION OR MALIGNANCY.THIS SPECIMEN WAS RESCREENED PART OF OUR SUPERVISOR [employer]SEMBL[employer] STOCK PROGRAM. This liquid based Th inPrep(R) pap test was screened withthe use of an image guided system. Basophil percentageon 2021 Cholesterol [Mass/Vol] 176 mg/dL <200 [facility] Work Phone: Comment on above: <200 mg/dL Desirable 200-240 mg/dL Borderline >240 mg/dL High Risk Glucose [Mass/Vol] 84 mg/dL 74-106 [facility] [place] Work Phone: Triglyceride [Mass/Vol] 54 mg/dL [facility] Work Phone: Comment on above: The drugs N-Acetylcy steine and Metamizole may falsely depress this assay.Serum Triglycerides Reference Interval Normal <150 mg/dL Borderline high 150 - 199 mg/dL High 200 - 499 mg/dL Very High > or = 500 mg/dL No Panel Informationon 01-27 Thyroid Stimulating Hormone (TSH) 2.84 uIU/mL 0.358-3.74 [facility] Work Phone: Vitamin D 25-Hydroxy 38.8 ng/mL [facility] Work Phone: Comment on above: Vitamin D 25(OH) Sta tus Range Deficiency <20 ng/mL (50nmol/L) Insufficiency 20 - 30 ng/mL (50 - 75 nmol/L) Sufficiency 30 - 100 ng/mL (75 - 250 nmol/L) Toxicity >100 ng/mL (>250 nmol/L) Serum or plasma cholesterol in HDL measurement (mass/volume)on 01-27-2022 Cholesterol in HDL [Mass/Vol] 84 mg/dL [facility] Work Phone: Comment on above: The drugs N-Acetylcy steine and Metamizole may falsely depress this assay. Reference Range HDL <40 mg/dL Low HDL Cholesterol HDL >or= 60 mg/dL High HDL Cholesterol Serum or plasma cholesterol in VLDL measurement (mass/volume)on 01-27-2022 Cholesterol in VLDL [Mass/Vol] 11 mg/dL 5-40 [facility] Work Phone: Serum or plasma low density lipoprotein (LDL) cholesterol measurement (mass/volume)on 01-27-2022 Cholesterol in LDL [Mass/Vol] 81 mg/dL 0-130 [facility] Work Phone: Vital Signs Date Time Vital Sign Value Performing Clinician Faci lity 02-07-2024 13:09-0400 Body height 165.[address] Reina Dillon Work Phone: [facility] 01-26-2022 12:57-0400 Body height 165.[address] Reina Dillon Work Phone: [facility] Work Phone: 01-26-2022 12:57-0400 Body mass index (BMI) [Ratio] 21.4 kg/m2 Dr. Reina Dillon Work Phone: [facility] Work Phone: 01-26-2022 12:57-0400 Body weight 58.[address] Reina Dillon Work Phone: [facility] Work Phone: 01-26-2022 12:57-0400 Diastolic blood pressure 56 mm[Hg] Dr. Reina Dillon Work Phone: [facility] Work Phone: 01-26-2022 12:57-0400 Systolic blood pressure 90 mm[Hg] Dr. Reina Dillon Work Phone: [facility] Work Phone: Encounters Encounter Date Encounter Type Care Provider Facility Start: 02-24-2025 End: 02-24-2025 ambulatory Reina Dillon Facility:[facility] [place] [facility] Start: 01-29-2025 End: 01-29-[address] Reina Dillon MD Work Phone: [facility] Work Phone: Start: 01-29-2025 End: 01-29-2025 Patient encounter procedure [facility] Work Phone: Start: 01-29-2025 End: 01-29-2025 ambulatory Reina Dillon Facility:[facility] Start: 10-16-2024 Encounter for genera l adult medical examination without abnormal findings Reina Dillon [facility] Start: 09-16-2024 End: 09-16-2024 ambulatory Reina Dillon Facility:[facility] Start: 02-14-2024 End: 02-14-[address] Reina Dillon Work Phone: [facility] Work Phone: Start: 02-14-2024 End: 02-14-[address] Reina Dillon Work Phone: [facility] Work Phone: Start: 02-07-2024 End: 02-07-[address] Reina Dillon Work Phone: [facility] Work Phone: Start: 02-07-2024 End: 02-07-[address] Reina Dillon Work Phone: [facility] Work Phone: Start: 01-27-2022 End: 01-27-[address] Reina Dillon Work Phone: [facility] Start: 01-26-2022 End: 01-26-[address] Reina Dillon Work Phone: [facility] Start: 01-19-2022 End: 01-19-2022 Patient encounter procedure [facility] Procedures Date Procedure Procedure Detail Performing Clinician Start: 01-29-2025 Screening mammography Alfa Dillon MD Work Phone: Start: 02-14-[address] Reina Dillon Work Phone: Start: 02-07-2024 Screening mammography Alfa Dillon Work Phone: Start: 01-19-2022 Screening mammography Plan of Treatment Date Care Activity Detail Author Start: 02-07-2024 Liquid based cervica l cytology screening [facility] Path report.final Dx Spec [facility] Payers Date Payer Category Payer Self-pay [id number] 2024 Unknown [id number] Unknown [id number] Unknown [facility] [employer] [id number] Unknown [id number] Unknown [id number] Unknown [id number] Social History Date Type Detail Facility Start: 09-29-2019 End: 02-07-2024 Tobacco smoking status WAIS Unknown if ever smoked [facility] Start: 1975 Sex Assigned At Female [facility] Start: 02-07-2024 Tobacco smoking stat us WAIS Never smoked tobacco (finding) [facility] Start: 02-03-2025 Sex Female (finding) [facility] [place] Clinical Note 02-07-2024 Note Date & Type Note Facility 02-07-2024 Note [facility] Pap Smear Specimen Adequacy February 07, 2024 2:38pm Comment . Satisfactory for evaluation. No endocervical component is identified. Comment on above: Satisfactory for pop luation. No endocervical component is identified. Evaluation note Note Date & Type Note Facility Evaluation note No assessment information availa ble [facility] Work Phone: Evaluation note Note Date & Type Note Facility Evaluation note Diagnosis Onset Date Encounter for routine gyneco logical examination noneactive [facility] Work Phone: Reason for referral (narrative) Note Date & Type Note Facility Reason for referral (narrative) No reason for referral information available [facility] Work Phone: Chief Complaint and Reason for Visit Chief Complaint SCREENING Chief Complaint SCREENING Annual (MANAGEMENT EXPERT) INT LABS Chief Complaint SCREENING Annual (MANAGEMENT EXPERT) Reason for Visit Encounter for routin e gynecological examination Chief Complaint SCREENING Annual (MANAGEMENT EXPERT) LT BREAST ABN MAMM Reason for Visit Encounter for routin e gynecological examination Chief Complaint Admit Date screen for breast cancer January 29, 2025 1:02pm Summary Purpose Family History No Family History Records Found Advance Directives No Advanced Directives Records Found Additional Source Comments Goals (unrecognized section and content) Goals may be documented in a n alternate sectionGoals may be documented in an alternate sectionGoals may be documented in an alternate sectionGoals may be documented in an alternate sectionGoals may be documented in an alternate section Care Teams (unrecognized sec tion and content) Team Status: Active Member Role Status Dates No Primary Care Physician Family Provider Active Dr. Reina Dillon MD Primary Care Provider Active Team Status: Inactive Member Role Status Dates Dr. Reina Dillon MD Primary Care Provider, Referrin g Provider Active Kari Quezada NP, FISCAL ANALYST-C Attending Provider Active Team Status: Inactive Member Role Status Dates Dr. Reina Dillon MD Primary Care Provider Active Kari Quezada NP, FISCAL ANALYST-C Attending Provider, Referring Provider Active Team Status: Active Member Role Status Dates Dr. Reina Dillon MD Primary Care Provider Active Team Status: Inactive Member Role Status Dates Dr. Reina Dillon MD Primary Care Provider Active Start: January 29, 2025 End: January 29, 2025 Kari Quezada FISCAL ANALYST, FISCAL ANALYST-C Attending Provider Active Start: January 29, 2025 End: January 29, 2025 Kari Quezada FISCAL ANALYST, FISCAL ANALYST-C Referring Provider Active Start: January 29, 2025 End: January 29, 2025 INFORMATION SOURCE (unrecogn ized section and content) DATE CREATED AUTHOR 02/25/2025 [facility] FOR RECORDS PERTAINING TO PATIENTS WHO ARE OR HAVE BEEN ENROLLED IN A CHEMICAL DEPENDENCY/SUBSTANCEABUSE PROGRAM, SOME INFORMATION MAY BE OMITTED. This clinical summary was aggregated from multiple sources. Caution should be exercised in using it in the provision of clinical care. This summary normalizes information from multiple sources, and as a consequence, information in this document may materially change the coding, format and clinical context of patient data. In addition, data may be omitted in some cases. CLINICAL DECISIONS SHOULD BE BASED ON THE PRIMARY CLINICAL RECORDS. [facility]The [facility]. provides no warranty or guarantee of the accuracy or completeness of information in this document.
== END | disposition home or self-care (01) ==
LOC: LAB 12:19
PROVIDERS: PCP Family Medicine; Referring Provider Family Medicine; Visit Provider Family Medicine
DX: R11.2 Nausea with vomiting, unspecified (principal)
CPT/HCPCS: 36415; 80053; 83690; 85025